=== PATIENT | female | born 1970 | race Caucasian/White ===

== ENCOUNTER 2018-07-02 10:22 | Inpatient (IN) ==
--- NOTE | 2018-07-02 10:50 | PROVIDER DOCUMENTATION ---
HPI-Rash/Wound/ReCheck - General Chief Complaint: Abscess Stated Complaint: ABSCESS,WEAKNESS Time Seen by Provider: 07/02/18 10:31 Source: patient Allergies/Adverse Reactions: Allergies Allergy/AdvReac Type Severity Reaction Status Date / Time No Known Allergies Allergy Verified 12/23/17 21:42 Home Medications: Home Medication List Medication Instructions Recorded Confirmed Last Taken Type Metformin [Glucophage] 1,000 mg PO BID CC 03/25/15 07/02/18 07/13/17 09:00 Hist ory 1000mg Insulin Glargine [Basaglar] 15 unit SUBQ DAILY 07/02/18 07/02/18 Unknown History Saxagliptin [Onglyza] 5 mg PO DAILY 07/02/18 07/02/18 Unknown History - History of Present Illness-Dermatology Nature of Presenting Problem: Patient is a 47 yowf presenting to the ED today for weakness, confusion, and abscess on upper left shoulder/lower neck. She reports she has a history of abscesses and gets them often. She states this one began hurting 4 days ago. Family reports she woke up confused and this started today. She denies any shortness of breath, chest pain, nausea, vomiting, or diarrhea. Location: reports: other (upper left shoulder/lower neck) Quality: reports: painful Severity: reports: moderate Onset/Duration: reports: 4 days ago Timing: reports: still present Context/Associated Symptoms: reports: abscess Identifiable cause?: No Locality of Occurance: Home Similar Symptoms Previously?: Yes (patient reports she has these often ) Recently seen or treated by another doctor?: No Review of Systems - Adult - REVIEW OF SYSTEMS - ADULT ROS:: unobtainable per condition Constitutional: reports: no symptoms reported. denies: chills, fever Eyes: reports: no symptoms reported Ears, Nose, Mouth & Throat: reports: no symptoms reported Cardiovascular: reports: no symptoms reported. denies: chest pain Respiratory: reports: no symptoms reported. denies: cough, shortness of breath Gastrointestinal: reports: no symptoms reported. denies: abdominal pain, diarrhea, nausea, vomiting Genitourinary: reports: no symptoms reported Musculoskeletal: reports: no symptoms reported Integumentary: reports: skin sores/ulcer (patient has healing sores on bilateral arms/face) Neurological: reports: other (family reports confusion). denies: dizzin ess/vertigo, loss of balance Psychiatric: reports: no symptoms reported Endocrine: reports: no symptoms reported Hematologic/Lymphatic: reports: no symptoms reported Allergic/Immunologic: reports: no symptoms reported All Other Systems: Reviewed and Negative Past History - Adult - PAST MEDICAL HISTORY-ADULT Review of Records: reports: Old Records Reviewed, Nursing Assessment Review, Medications Reviewed Major Childhood Illnesses: reports: denies history Cardiovascular: reports: denies history Respiratory: reports: denies history Gastrointestinal: reports: denies history Obstetrical/Gynecological: reports: denies history Genitourinary: reports: denies history Musculoskeletal: reports: denies history Neurological: reports: denies history Endocrine/Immune: reports: denies history Other Conditions: reports: denies history - IMMUNIZATION STATUS Childhood Immunizations: See Nurse Assessment Flu Vaccine: See Nurse Assessment - FAMILY HISTORY Family History: reviewed, not pertinent - SOCIAL HISTORY Smoking: greater than 1 pack/day Provider spent 3-5 mins advising pt. on dangers of tobacco.: Discussed manners to quit use, and f/u contacts for add'l counseling. Substance Use: none/never Physical Exam-General - PHYSICAL EXAM-ADULT Initial Vital Signs Reviewed: Yes - CONSTITUTIONAL General Appearance: appears well, alert - EYES Eyes: PERRL/EOMI - HEAD, EARS, NOSE, MOUTH & THROAT HENMT: normocephalic/atraumatic - NECK Neck: full range of motion, supple - RESPIRATORY Respiratory: chest non-tender, no respiratory distress, crackles (left lung) - CARDIOVASCULAR Cardiovascular: regular rate, rhythm - GASTROINTESTINAL (ABDOMEN) Abdominal Exam: normal bowel sounds, non tender - LYMPHATIC Lymphatic: no adenopathy - MUSCULOSKELETAL Extremity: normal range of motion - SKIN Integumentary: normal color, warm/dry, other (abscess left upper shoulder/lower neck) - NEUROLOGIC Neurologic: grossly normal - PSYCHIATRIC Psych/Mental Status: normal mood/affect, normal thought content, normal thought process, oriented x 3 Progress - PLAN OF CARE/RESULTS Progress/Plan/Lab Results: Vital Signs - 8 hr 07/02/18 10:25 07/02/18 12:47 07/02/18 12:54 Temperature 97.5 F L 98.5 F Pulse Rate 101 H 111 H Respiratory Rate 15 18 Blood Pressure 135/85 185/107 127/79 O2 Sat by Pulse Oximetry 97 95 96 07/02/18 13:02 07/02/18 13:33 07/02/18 14:03 Temperature Pulse Rate Respiratory Rate Blood Pressure 145/86 112/62 135/101 O2 Sat by Pulse Oximetry 97 96 97 Laboratory Results - last 24 hr 07/02/18 07/02/18 07/02/18 10:58 10:58 10:58 WBC 21.79 H RBC 4.69 Hgb 13.7 Hct 39.2 MCV 83.6 MCH 29.2 MCHC 34.9 RDW Std Deviation 14.4 Plt Count 290 MPV 12.4 H Immature Gran % (Auto) 0.4 Neut % (Auto) 81.0 H Lymph % (Auto) 11.7 L Scott % (Auto) 6.4 Eos % (Auto) 0.3 Baso % (Auto) 0.2 Immature Gran # (Auto) 0.08 H Neut # (Auto) 17.67 H Lymph # (Auto) 2.55 Scott # (Auto) 1.39 H Eos # (Auto) 0.06 Baso # (Auto) 0.04 PT INR PTT (Actin FS) Sodium 122 L Potassium 3.8 Chloride 86 L Carbon Dioxide 23 L Anion Gap 13 BUN 8 Creatinine 0.8 Estimated GFR/1.73 m2 > 60 BUN/Creatinine Ratio 10 Glucose 633 H* POC Glucose Calculated Osmolality 274 Calcium 9.2 Total Bilirubin 0.36 AST 13 ALT 8 L Alkaline Phosphatase 131 H Creatine Kinase 72 Troponin T Total Protein 7.1 Albumin 3.2 L Globulin 3.9 Albumin/Globulin Ratio 0.8 Plasma Lactate Urine Source Urine Color Urine Turbidity Urine pH Ur Specific [place] Urine Protein Ur Glucose (Stick) Ur Ketones (Stick) Urine Blood Urine Nitrite Urine Bilirubin Urobilinogen Dipstick Urine Leukocytes Urine WBC (Auto) Urine RBC (Auto) U Epithel Cells (Auto) Urine Bacteria (Auto) Acetone Level 07/02/18 07/02/18 07/02/18 10:58 10:58 10:58 WBC RBC Hgb Hct MCV MCH MCHC RDW Std Deviation Plt Count MPV Immature Gran % (Auto) Neut % (Auto) Lymph % (Auto) Scott % (Auto) Eos % (Auto) Baso % (Auto) Immature Gran # (Auto) Neut # (Auto) Lymph # (Auto) Scott # (Auto) Eos # (Auto) Baso # (Auto) PT 14.8 INR 1.07 PTT (Actin FS) 30.0 Sodium Potassium Chloride Carbon Dioxide Anion Gap BUN Creatinine Estimated GFR/1.73 m2 BUN/Creatinine Ratio Glucose POC Glucose Calculated Osmolality Calcium Total Bilirubin AST ALT Alkaline Phosphatase Creatine Kinase Troponin T < 0.010 Total Protein Albumin Globulin Albumin/Globulin Ratio Plasma Lactate 1.6 Urine Source Urine Color Urine Turbidity Urine pH Ur Specific [place] Urine Protein Ur Glucose (Stick) Ur Ketones (Stick) Urine Blood Urine Nitrite Urine Bilirubin Urobilinogen Dipstick Urine Leukocytes Urine WBC (Auto) Urine RBC (Auto) U Epithel Cells (Auto) Urine Bacteria (Auto) Acetone Level 07/02/18 07/02/18 07/02/18 10:58 11:52 13:53 WBC RBC Hgb Hct MCV MCH MCHC RDW Std Deviation Plt Count MPV Immature Gran % (Auto) Neut % (Auto) Lymph % (Auto) Scott % (Auto) Eos % (Auto) Baso % (Auto) Immature Gran # (Auto) Neut # (Auto) Lymph # (Auto) Scott # (Auto) Eos # (Auto) Baso # (Auto) PT INR PTT (Actin FS) Sodium Potassium Chloride Carbon Dioxide Anion Gap BUN Creatinine Estimated GFR/1.73 m2 BUN/Creatinine Ratio Glucose POC Glucose 420 H Calculated Osmolality Calcium Total Bilirubin AST ALT Alkaline Phosphatase Creatine Kinase Troponin T Total Protein Albumin Globulin Albumin/Globulin Ratio Plasma Lactate Urine Source CLEAN CATCH Urine Color STRAW Urine Turbidity CLEAR Urine pH 6.5 Ur Specific [place] 1.022 Urine Protein NEGATIVE Ur Glucose (Stick) >1000 A Ur Ketones (Stick) NEGATIVE Urine Blood LARGE A Urine Nitrite NEGATIVE Urine Bilirubin NEGATIVE Urobilinogen Dipstick NORMAL Urine Leukocytes NEGATIVE Urine WBC (Auto) <10 Urine RBC (Auto) TNTC A U Epithel Cells (Auto) <10 Urine Bacteria (Auto) NEGATIVE Acetone Level NEGATIVE Orders Category Date Time Status Admit - [facility] Routine AdmDCTranf 07/02/18 14:24 Active Activity - Up with Assistance ORDERED Care 07/02/18 14:24 Active Apply Mechanical Device [QM] ORDERED Care 07/02/18 14:24 Active Cardiac Monitoring DIRECTED Care 07/02/18 11:52 Active DVT/PE Risk Assess/Protocol [QM] ORDERED Care 07/02/18 14:24 Active FSBS/Accucheck Result AC + HS Care 07/02/18 14:24 Active I and D Set up DIRECTED Care 07/02/18 12:58 Active IV Insertion ORDERED Care 07/02/18 11:52 Completed Intake and Output-Strict ORDERED Care 07/02/18 14:24 Active Notify MD of + Sepsis Screen NOW Care 07/02/18 11:52 Active Notify Physician As Ordered Care 07/02/18 11:52 Active Nursing- MD Consult Request ROUTINE Care 07/02/18 14:24 Active Vital Signs Order Q 8-HR ASSESS Care 07/02/18 14:24 Active Z-Document. for Tele Applied ORDERED Care 07/02/18 14:24 Active Physician/Provider Consults Routine Cons 07/02/18 14:24 Ordered Diabetic Diet Diet 07/02/18 14:24 Active CHEST-2 VIEWS [RAD] Stat Exams 07/02/18 10:41 Completed ACETONE SERUM [CHEM] Stat Lab 07/02/18 10:58 Completed BLOOD CULTURE [BLDCUL] Stat Lab 07/02/18 10:24 Results BLOOD CULTURE [BLDCUL] Stat Lab 07/02/18 10:58 Results CBC WITH DIFF [HEME] Routine Lab 07/03/18 06:00 Ordered CBC WITH ELECTRONIC DIFF [HEME] Stat Lab 07/02/18 10:58 Completed CK PROFILE [SP CHEM] Stat Lab 07/02/18 10:58 Completed COMPREHENSIVE METABOLIC PANEL [CHEM] Routine Lab 07/03/18 06:00 Ordered COMPREHENSIVE METABOLIC PANEL [CHEM] Stat Lab 07/02/18 10:58 Completed LACTATE, PLASMA [CHEM] Lab 07/02/18 15:00 Uncollected LACTATE, PLASMA [CHEM] Lab 07/02/18 18:00 Uncollected LACTATE, PLASMA [CHEM] Q3H Lab 07/02/18 10:58 Completed MAGNESIUM [CHEM] Routine Lab 07/03/18 06:00 Ordered PROTIME WITH INR [COAG] Stat Lab 07/02/18 10:58 Completed PROTIME WITH INR [COAG] Stat Lab 07/02/18 14:24 Ordered PTT [COAG] Stat Lab 07/02/18 10:58 Completed PTT [COAG] Stat Lab 07/02/18 14:24 Ordered TROPONIN T Stat Lab 07/02/18 10:58 Completed TSH Routine Lab 07/03/18 06:00 Ordered URINALYSIS W/POSS RFLX CULT [URINALYSIS] Stat Lab 07/02/18 11:52 Completed 0.9% Sodium Chloride Inj [Ns] 1,000 ml Med 07/02/18 14:24 Ordered IV 100 mls/hr 0.9% Sodium Chloride Inj [Ns] 1,000 ml Med 07/02/18 12:30 Discontinued IV 999 mls/hr Acetaminophen [Tylenol] Med 07/02/18 14:24 Active 650 mg PO Q6H PRN PRN Clindamycin 600 mg/Ns Med 07/02/18 12:04 Discontinued 600 mg in 50 ml IV NOW Hydrocodone/APAP 7.5 mg/325 mg [[place]-7.5] Med 07/02/18 14:24 Ordered See Dose Instructions PO Q4H PRN Insulin Glargine Med 07/03/18 09:00 Ordered 15 unit SUBQ DAILY Insulin Human Regular [Humulin R] Med 07/02/18 12:29 Discontinued 10 unit IV NOW ONE Insulin Human Regular [Humulin R] Med 07/02/18 12:20 Discontinued 5 unit IV NOW ONE Ketorolac [Toradol] Med 07/02/18 12:04 Discontinued 30 mg IV NOW ONE Lidocaine 1% [Xylocaine 1%] Med 07/02/18 12:58 Discontinued 20 ml INJ NOW ONE Metformin [Glucophage] Med 07/02/18 17:00 Ordered 1,000 mg PO BID CC Morphine Med 07/02/18 12:18 Discontinued 4 mg IV NOW ONE Omeprazole [Prilosec] Med 07/03/18 09:00 Ordered 40 mg PO DAILY Ondansetron [Zofran] Med 07/02/18 12:18 Discontinued 4 mg IV NOW ONE Pharmacy Order [Vancomycin IV Per Pharmacy] Med 07/02/18 14:24 Ordered 1 each MISC DIRECTED Piperacillin/Tazobactam [Zosyn] 3.375 gm Med 07/02/18 14:24 Ordered 0.9% Sodium Chloride Inj [Ns] 50 ml IV Q6H Saxagliptin [Onglyza] Med 07/03/18 09:00 Ordered 5 mg PO DAILY Oxygen Device Stat Oth 07/02/18 11:52 Active Telemetry [OM.EQ] Routine Oth 07/02/18 14:24 Active EKG [EKG] Stat Ther 07/02/18 10:41 Ordered Transfer/Admit Order [TRANSFER] Routine Transfer 07/02/18 13:50 Completed Discussed plan of care with patient. She is in agreement with plan and denies any questions at this time. Paged hospitalist at 12:31 Discussed patient plan of care with Dr. Lyles. Result Diagrams: 07/02/18 10:58 07/02/18 10:58 - XRAY 1 XRAY Study: Chest Impression: See EMR Report ( CHEST-2 VIEWS - 07/02/2018 INDICATION: confusion COMPARISON: 07/13/2017 FINDINGS: The lungs are normally expanded and clear. Heart size and mediastinal contours are normal. No pneumothorax or pleural effusion. IMPRESSION: Negative exam. Electronically signed by Angel Laguna 07/02/2018 11:25 AM 07/02/18 1125 Interpreting Physician: Angel Laguna MD Dictated Date/Time: 07/02/181124 cc: Ronda Birmingham; None,PCP) - CONSULTS/PCP/HOSPITALIST Notification #1 *Consult/PCP/Hospitalist*: Dr. Rodrigues Time Discussed: 13:04 Reason/Comments: Admission- cellulitis, hyperglycemia Consult Disposition: Admit (accepting physician is Dr. Ash) Procedures - INCISION & DRAINAGE Site: left upper back/shoulder/lower neck Abscess Type: Cutaneous, Simple Prepped with: Betadine Anesthetic: 1% Volume of Anesthetic (ml's): 10 Blade Size: 11 Packing placed?: Yes (/ iodiform ) Drainage: Small Amount Procedure Comment: Patient stable Departure - Departure Date of Disposition Decision: 07/02/18 Time of Disposition Decision: 12:35 DIAGNOSIS: Uncontrolled diabetes mellitus Qualifiers: Diabetes mellitus type: other specified (including ABE) Glycemic state: with hyperglycemia Qualified Code(s): E13.65 - Other specified diabetes mellitus with hyperglycemia Cellulitis Qualifiers: Site of cellulitis: unspecified site Qualified Code(s): L03.90 - Cellulitis, unspecified Disposition: ADMITTED INPATIENT 09 Certified Medical Emergency: Emergent Condition: Stable - Critical Care Note This patient required my direct & personal management of CC.: No Attestation - Physician/ JIMENEZ Attestation Patient care was provided by Advanced Practice Provider:: Yes Advanced Practice Provider:: Ronda Birmingham Advanced Practice Provider documentation review:: The Mid-level provider documentation, treatment plan and medical decision making was reviewed by the physician who agrees with all treatment and medical decision making by the MLP. The physician spent face to face time with patient:: Yes Advanced Practice Provider documentation review:: Supervising physician onsite and consulted in the evaluation and care of this patient. The physician did have a face to face encounter with the patient.
--- NOTE | 2018-07-02 11:28 | Diag Imaging Result Doc PS360 ---
CHEST-2 VIEWS - 07/02/2018 INDICATION: confusion COMPARISON: 07/13/2017 FINDINGS: The lungs are normally expanded and clear. Heart size and mediastinal contours are normal. No pneumothorax or pleural effusion. IMPRESSION: Negative exam. Electronically signed by Angel Laguna 07/02/2018 11:25 AM
[2018-07-02 11:40] LABS: BASO# 0.04 X1000 (0.0-0.2); BASO% 0.2 % (0.0-0.8); EOS# 0.06 X1000 (0.0-0.7); EOS% 0.3 % (0.0-10.0); HEMATOCRIT 39.2 % (37.0-47.0); HEMOGLOBIN 13.7 g/dL (12.0-16.0); IMM GRAN# 0.08 X1000 (0.0-0.04); IMM GRAN% 0.4 % (0.0-0.5); LYMPH# 2.55 X1000 (1.2-3.4); LYMPH% 11.7 % (20.5-51.1); MCH 29.2 PG (27-31); MCHC 34.9 g/dL (33-37); MCV 83.6 FL (81-99); MONO# 1.39 X1000 (0.11-0.59); MONO% 6.4 % (1.7-9.3); MPV 12.4 FL (7.4-10.4); NEUT# 17.67 X1000 (1.4-6.5); PLT 290 X1000 (130-400); RBC 4.69 XMIL (4.2-5.4); RDW 14.4 % (11.5-14.5); WBC 21.79 X1000 (4.8-10.8)
[2018-07-02] MEDS ORDERED: TORADOL IV ONE (12:04)
[2018-07-02] MEDS ORDERED: CLINDAMYCIN 600 MG/NS 600 MG/50 ML IVPB IV ONE (12:04)
[2018-07-02 12:06] LABS: AGAP 13; ALB/GLOB RATIO 0.8; ALBUMIN 3.2 g/dL (3.5-5.0); ALKALINE PHOSPHATASE 131 U/L (32-104); BUN 8 mg/dL (8-22); CALCIUM 9.2 mg/dL (8.8-10.2); CHLORIDE 86 mmol/L (98-107); COSMO 274; CREATININE 0.8 mg/dL (0.5-0.9); ESTIMATED GFR > 60; GOT 13 U/L (10-30); GPT 8 U/L (10-36); POTASSIUM 3.8 mmol/L (3.5-5.1); SODIUM 122 mmol/L (136-145); TCO2 23 mmol/L (25-35); TOTAL BILIRUBIN 0.36 mg/dL (0.20-1.00); TOTAL PROTEIN 7.1 g/dL (6.3-8.3)
[2018-07-02 12:11] LABS: URINE SOURCE CLEAN CATCH
[2018-07-02 12:15] LABS: BILIRUBIN URINE NEGATIVE (NEGATIVE); COLOR STRAW; GLUCOSE URINE >1000 mg/dL (NEGATIVE); KETONE URINE NEGATIVE (NEGATIVE); LEUKOCYTES URINE NEGATIVE (NEGATIVE); NITRITE URINE NEGATIVE (NEGATIVE); PH URINE 6.5; PROTEIN URINE NEGATIVE (NEGATIVE); SP GRAVITY URINE 1.022; TURBIDITY URINE CLEAR (CLEAR); UROBILINOGEN URINE NORMAL (NORMAL)
[2018-07-02] MEDS ORDERED: MORPHINE IV ONE (12:18)
[2018-07-02 12:19] LABS: GLUCOSE 633 mg/dL (70-104)
[2018-07-02] MEDS ORDERED: HUMULIN R IV ONE ×2 (12:20→12:29)
[2018-07-02 12:21] LABS: BLOOD URINE LARGE (NEGATIVE); UR EPITHELIAL CELLS <10 /HPF (<10); URINE BACTERIA NEGATIVE /HPF; URINE RBC TNTC /HPF (<10); URINE WBC <10 /HPF (<10)
[2018-07-02] MEDS ORDERED: NS 1,000 ML IV ONE (12:30)
[2018-07-02 12:33] LABS: INR 1.07; PROTIME 14.8 Seconds (11.0-16.0)
[2018-07-02] MEDS: ZOFRAN IV ONE ×2 (12:34→12:36)
[2018-07-02] MEDS ORDERED: XYLOCAINE 1% INJ ONE (12:58)
--- NOTE | 2018-07-02 14:14 | HISTORY AND PHYSICAL ---
HISTORY OF PRESENT ILLNESS: Ms. Bullock says she has not felt good in several days. The last week and almost 2 weeks she has noticed some more pain and swelling. She has little skin carbuncles that she gets on her back, and she has 1 that looks like it is inflamed, infected in the upper part of her back, midline, around C7 level, very tender with purulent drainage. She also had sugar in the 600s. She has known diabetes. She has sodium of 122 and elevated white count, so suspect maybe some bacteremia from this as well. So, I am going to admit her to the hospital for IV antibiotics, and see if we can do an I and D on that area in her back. PAST MEDICAL HISTORY: 1. She has had lumbar spine surgery. I think she said it was a disk. 2. Abscess drainage in the past. 3. She has had a x4. 4. History of lithotripsy. 5. Status post cholecystectomy. 6. Diabetes mellitus type 2 since she has been 20. She is on Lantus insulin. SOCIAL HISTORY: Smokes a pack of cigarettes a day. Denies alcohol or illicit drugs. She is on disability for her back pain. Has 4 children. Lives in [place]; goes to the [facility]. FAMILY HISTORY: Positive for diabetes mellitus. ALLERGIES: No known drug allergies. MEDICATIONS: She is on metformin, Lantus insulin. REVIEW OF SYSTEMS: General: No weight gain or loss. No fever or chills. HEENT: Unremarkable. Respiratory: No increased work of breathing or dyspnea. Cardiovascular: No chest pain or tachy palpitation. Gastrointestinal and Genitourinary: No gross hematuria, dysuria. Musculoskeletal and Neurologic: No focal complaints. Skin: She is prone to get carbuncles or epidural abscesses, and has another 1 on her upper back at the present time. PHYSICAL EXAMINATION: VITAL SIGNS: Temperature 98.5 degrees, pulse 110, respirations 18, blood pressure 145/86. EYES: Pupils are equal and round. LUNGS: Clear in all lung arzola. CARDIOVASCULAR EXAM: Regular rhythm and rate without murmur or S3. ABDOMEN: Soft. SKIN: Warm and dry. Weight 180 pounds. She has about 4 x 5 cm fluctuant area which is in the upper back midline consistent with a subdural abscess or sebaceous cyst. HEIGHT: She is 5 feet 5 inches tall. LABORATORY DATA: White count 21,790, hematocrit 39, platelet count 290,000. Sodium 122, potassium 3.8, chloride is 86. BUN 8 and creatinine 0.8. AST 13, ALT 8, alkaline phosphatase 135. PT is 14.8, INR 1.07, PTT is 30. Urinalysis shows too numerous to count red blood cells, less than 10 white blood cells. X-RAY DATA: Chest x-ray: Negative exam. No infiltrate. ASSESSMENT AND PLAN: 1. Subdural abscess or sebaceous cyst. She is prone to get subcutaneous abscesses in her skin in the past. I am going to ask Surgery to see. She requested Dr. Zaragoza; I think she used him before. I told them I would try and get Dr. Zaragoza or one in his group. We will put her on vancomycin and Zosyn for now and check blood cultures. I suspect it is going to be either Staphylococcus or Streptococcus organism. 2. Diabetes mellitus type 2 under poor control. Sugars are 600. I will check a hemoglobin A1c in the morning. We will put her on a sliding scale and continue her Lantus. 3. Hyponatremia. We will give her some normal saline. I suspect she is volume depleted, and follow her sodium and electrolytes. cc: Dat Ash MD
[2018-07-02] MEDS ORDERED: TYLENOL PO PRN (14:24)
[2018-07-02] MEDS ORDERED: VANCOMYCIN IV PER PHARMACY MISC SCH (14:24)
[2018-07-02] MEDS ORDERED: VANCOMYCIN 2,000 MG in NS 500 ML IV ONE (15:00)
[2018-07-02] MEDS: ZOSYN 3.375 GM in NS 50 ML IV SCH ×2 (15:20→23:09)
[2018-07-02] MEDS: NS 1,000 ML IV SCH (15:21)
[2018-07-02] MEDS: HUMULIN R SUBQ SCH ×2 (16:21→23:18)
[2018-07-02] MEDS: GLUCOPHAGE PO SCH (16:23)
[2018-07-02 16:43] LABS: INR 1.16; PROTIME 15.7 Seconds (11.0-16.0)
[2018-07-02 16:45] LABS: PTT 28.4 Seconds (22.3-41.8)
[2018-07-02] MEDS: NORCO-7.5 PO PRN (23:09)
--- NOTE | 2018-07-02 23:34 | GENERAL SURGERY CONSULTATION ---
DATE: 07/02/2018 HISTORY OF PRESENT ILLNESS: This is a 47-year-old female who has an extensive history of soft tissue infection and cellulitis. She also has poorly controlled diabetes. She has been managed by Dr. Gutiérrez as recently as December of last year. She says she developed upper back pain and swelling, and came the ER were it was incised and drained. She is somewhat somnolent but arousable. PAST MEDICAL HISTORY: 1. Poorly controlled diabetes. Her hemoglobin A1c is not obtained as of yet, but her glucose is up to 633. 2. Recurrent soft tissue infections over her whole body. 3. History of nephrolithiasis. PAST SURGICAL HISTORY: She has had lumbar spine, x4, cholecystectomy, lithotripsy. SOCIAL HISTORY: She smokes daily. No alcohol. No drugs. She is on disability for chronic back pain. She has 4 children. FAMILY HISTORY: Reviewed and significant for diabetes, but otherwise negative. REVIEW OF SYSTEMS: Ten-point negative. MEDICATIONS: Negative for anticoagulants, but she does take insulin. PHYSICAL EXAMINATION: On exam she is afebrile. Pulse has been in the 90s to low 100s. Blood pressure 135/69, oxygen saturation 94% on room air. General: She is arousable, but sleeping quite soundly, and conversant.HEENT: She does have a protruding lesion over her anterior forehead with central ulceration. No erythema. Concerning for basal cell or squamous cell carcinoma. On her upper back, she does have an indurated area of erythema with packing centrally and an incision approximately 1 cm over the central aspect of this, with no obvious purulence. No fluctuance. There is no necrosis. Cardiovascular: Normal rate. Pulmonary: No increased work of breathing. Abdomen is soft, nontender, nondistended. Her integument otherwise has numerous areas of excoriations and superficial ulcerations over the skin of her legs and arms. Psychiatric: Somewhat somnolent. Neurologic: No gross deficits. Lymphatic: No lower extremity edema. LABORATORY DATA: White count is up to 21, hematocrit is 39. Creatinine is 0.8, glucose is 633. Troponins are negative. Lactate is normal. UA is positive for blood. DIAGNOSTIC DATA: No imaging other than a chest x-ray that was reviewed. ASSESSMENT AND PLAN: This is a 47-year-old female with poorly controlled diabetes. She has an upper back abscess that has been drained by the emergency department. I do not appreciate any un- drained fluid collection, but she does still have quite a lot of residual cellulitis and induration. I recommend continued intravenous antibiotics and aggressive glucose control as you are doing. She also has an incidentally noted cutaneous lesion on her anterior forehead that is concerning for neoplasm of the skin, basal cell or squamous cell. She will ultimately need wide local excision of this, but would advise against in the setting of ongoing infection. She will need to follow this closely. I have discussed this with the patient as well as her nurse. We will continue to follow along. cc: MD Dat Hinton MD
[2018-07-03] MEDS: VANCOMYCIN 1,200 MG in NS 250 ML IV SCH ×2 (03:12→16:57)
[2018-07-03] MEDS: ZOSYN 3.375 GM in NS 50 ML IV SCH ×4 (05:17→17:02)
[2018-07-03] MEDS: NS 1,000 ML IV SCH ×2 (05:18→11:32)
[2018-07-03] MEDS: HUMULIN R SUBQ SCH ×3 (06:28→15:55)
[2018-07-03] MEDS: NORCO-7.5 PO PRN ×3 (06:32→15:53)
[2018-07-03 06:54] LABS: BASO# 0.04 X1000 (0.0-0.2); BASO% 0.2 % (0.0-0.8); EOS# 0.12 X1000 (0.0-0.7); EOS% 0.6 % (0.0-10.0); HEMATOCRIT 37.8 % (37.0-47.0); HEMOGLOBIN 12.7 g/dL (12.0-16.0); IMM GRAN# 0.06 X1000 (0.0-0.04); IMM GRAN% 0.3 % (0.0-0.5); LYMPH# 2.32 X1000 (1.2-3.4); LYMPH% 12.1 % (20.5-51.1); MCH 28.7 PG (27-31); MCHC 33.6 g/dL (33-37); MCV 85.3 FL (81-99); MONO# 1.43 X1000 (0.11-0.59); MONO% 7.5 % (1.7-9.3); MPV 11.9 FL (7.4-10.4); NEUT# 15.21 X1000 (1.4-6.5); NEUT% 79.3 % (42.2-75.2); PLT 247 X1000 (130-400); RBC 4.43 XMIL (4.2-5.4); RDW 14.8 % (11.5-14.5); WBC 19.18 X1000 (4.8-10.8)
[2018-07-03 07:21] LABS: AGAP 10; ALB/GLOB RATIO 0.8; ALBUMIN 2.7 g/dL (3.5-5.0); ALKALINE PHOSPHATASE 185 U/L (32-104); BUN 13 mg/dL (8-22); CALCIUM 8.7 mg/dL (8.8-10.2); CHLORIDE 98 mmol/L (98-107); COSMO 272; CREATININE 0.5 mg/dL (0.5-0.9); ESTIMATED GFR > 60; GLUCOSE 256 mg/dL (70-104); GOT 20 U/L (10-30); GPT 17 U/L (10-36); MAGNESIUM 1.5 mg/dL (1.5-2.7); POTASSIUM 3.3 mmol/L (3.5-5.1); SODIUM 131 mmol/L (136-145); TCO2 23 mmol/L (25-35); TOTAL BILIRUBIN 0.41 mg/dL (0.20-1.00); TOTAL PROTEIN 6.1 g/dL (6.3-8.3)
[2018-07-03] MEDS ORDERED: ONGLYZA PO SCH (09:00)
[2018-07-03] MEDS ORDERED: PRILOSEC PO SCH (09:00)
[2018-07-03] MEDS ORDERED: LANTUS INSULIN SUBQ SCH (09:00)
[2018-07-03] MEDS: GLUCOPHAGE PO SCH ×2 (09:28→17:02)
--- NOTE | 2018-07-03 14:25 | GENERAL SURGERY PROGRESS NOTE ---
DATE: 07/03/2018 SUBJECTIVE: No events overnight. No tachycardia. OBJECTIVE: Vital Signs: Blood pressure 155/86. General: She is alert. Neck: Posterior neck abscess, erythema is somewhat improved, but does persist. There is some induration and purulent drainage, but I do not appreciate any undrained fluctuance. LABORATORY DATA: White count is down to 19, hematocrit is 37. Glucoses are better, but still in the 200s. ASSESSMENT AND PLAN: This is a 47-year-old female with poorly-controlled diabetes, recurrent soft tissue infections of the posterior neck, upper back abscess. Seems to be adequately drained. Continue intravenous antibiotics. I am going out of town. One of my partners will cover for me over the next several days. cc: Katina Dewitt MD
--- NOTE | 2018-07-03 15:49 | DISCHARGE SUMMARY ---
ADMISSION DATE: 07/02/2018 DISCHARGE DATE: 07/03/2018 HISTORY OF PRESENT ILLNESS: She has no primary care physician. States that she has not felt good for several days last week. For almost 2 weeks now she has had some pain and swelling in her back and neck, and she gets skin carbuncles and this one seemed to be inflamed, enlarged and very tender. A lot of pain around the C7 level upper back midline with some purulent drainage. Blood sugar when she came into the emergency room was 600. PAST MEDICAL HISTORY: 1. She has lumbar spine surgery; I think it was a disk. 2. Abscess drainage in the past. 3. She had x4. 4. History of lithotripsy. 5. Status post cholecystectomy. 6. Diabetes mellitus type 2. She developed that when she was 20 years old. She is on Lantus insulin at home. HOSPITAL COURSE: So, presented with a subdural abscess. Dr. Dewitt evaluated. She has poorly controlled diabetes and upper back abscess drained in the emergency department. No appreciable fluid collection. Still a lot of residual cellulitis and recommended continued IV antibiotics and aggressive glucose control. Noted a cutaneous lesion on the anterior forehead that is concerning for neoplasm of the skin, basal cell or squamous cell. Ultimately will need a wide excision of this, but would advise against in the setting of ongoing infection, but recommend she get followed closely. Her microbiology wound grew out gram-positive cocci, and blood cultures so far no growth. Her blood sugars have come down to low 200s, and she is eating and tolerating that well. She very much wants to go home, so I will put her on antibiotic. I will use Bactrim Double Strength 1 twice a day for another 10 days. Keep her on her Lantus insulin and I think we can keep it at 15 units a day and keep her on Onglyza 5 mg daily. It is important that she get follow up. Apparently, I think she goes to [facility] and has a primary care physician there. cc: Dat Ash MD
[2018-07-03 16:37] VITALS: BP 132/70
== END 2018-07-03 18:41 | disposition home or self-care (01) | DRG 988 ==
LOC: ED 10:22 → 3N 14:04
PROVIDERS: ATTEND Emergency Medicine
CPT/HCPCS: 71020; 71046; 80053; 81001; 82009; 82550; 82948; 83605; 83735; 84443; 84484; 85025; 85610; 85730; 87040; 87070; 87077; 87186; 93005; 96365; 96375; 99285; A9270; J1815; J1885; J2270; J2405; J2543; J3370; J7030; J7040; J7050; S0077; XXXXX